=== PATIENT | male | born 1975 | race Caucasian/White ===

== ENCOUNTER 2020-08-15 18:30 | Outpatient (REF) | payer OTHER, SELFPAY ==
[2020-08-17 13:17] LABS: COVID-19 RT-PCR UVMMC Result Negative (Negative)
== END 2020-08-15 18:31 | disposition home or self-care (01) ==
LOC: NCHCN 18:30
PROVIDERS: Visit Provider Nurse Practitioner Family
DX: J01.90 Acute sinusitis, unspecified (principal); Z20.822 Contact with and (suspected) exposure to COVID-19
CPT/HCPCS: U0003